=== PATIENT | female | born 1985 ===

== ENCOUNTER 2016-10-13 09:08 | Emergency (ER) | payer OTHER ==
[2016-10-13 09:25] VITALS: TEMP 98.2; BMI 24.9
--- NOTE | 2016-10-13 09:36 | ED PDOC ---
Arrival/HPI - General Historian: Patient - History of Present Illness Time/Duration: Prior to Arrival Symptom Onset: Sudden Symptom Course: Unchanged - General Time Seen by Provider: 10/13/16 09:14 - History of Present Illness Narrative History of Present Illness (Text): 31 F with pmh of asthma and migraine presents to the emergency department with palpitations, lightheadedness, sob, and chest tightness. Pt states that her symptoms first started 1 month ago when her mother in law . She states that her symptoms have a sudden onset and last for a few min and are gone. She does admit to being more stressed lately. She denies any anxiety or depression. Denies any psychiatry hx. Denies any lawson, dizziness, f/c, cp, abd pain, n/c/d, urinary or bm changes. PMD: Dr Wilkins ([facility]) Past Medical History - Provider Review Nursing Documentation Reviewed: Yes - Infectious Disease Hx of Infectious Diseases: None - Tetanus Immunization Tetanus Immunization: Unknown - Cardiac Hx Cardiac Disorders: No - Pulmonary Hx Respiratory Disorders: Yes Hx Asthma: Yes - Neurological Hx Neurological Disorder: Yes Hx Migraine: Yes - HEENT Hx HEENT Disorder: No - Renal Hx Renal Disorder: No - Endocrine/Metabolic Hx Endocrine Disorders: No - Hematological/Oncological Hx Blood Disorders: No - Integumentary Hx Dermatological Disorder: No - Musculoskeletal/Rheumatological Hx Musculoskeletal Disorders: No - Gastrointestinal Hx Gastrointestinal Disorders: No - Genitourinary/Gynecological Hx Genitourinary Disorders: No - Psychiatric Hx Psychophysiologic Disorder: No Hx Substance Use: No - Past Surgical History Past Surgical History: No Previous - Anesthesia Hx Anesthesia: No - Suicidal Assessment Feels Threatened In Home Enviroment: No Family/Social History Family/Social History: No Known Family HX Smoking Status: Never Smoked Hx Alcohol Use: Yes Frequency of alcohol use: Socially Hx Substance Use: No Hx Substance Use Treatment: No Allergies/Home Meds Allergies/Adverse Reactions: Allergies No Known Allergies Allergy (Verified 10/13/16 09:25) Home Medications: Home Meds Medication Instructions Recorded Confirmed Albuterol HFA [Ventolin HFA 90 2 puff INH PRN PRN 05/16/16 10/13/16 mcg/actuation (8 g)] Review of Systems - Physician Review All systems were reviewed & negative as marked: Yes - Review of Systems Respiratory: SOB. absent: Wheezing Cardiovascular: Palpitations. absent: Chest Pain Neurological: Other (light headness ). absent: Headache, Dizziness Psychiatric: absent: Anxiety, Depression Physical Exam Temperature: Afebrile Blood Pressure: Normal Pulse: Regular Respiratory Rate: Normal Appearance: Positive for: Well-Appearing, Non-Toxic, Comfortable Pain Distress: None Mental Status: Positive for: Alert and Oriented X 3 - Systems Exam Head: Present: Atraumatic, Normocephalic Pupils: Present: PERRL Extroacular Muscles: Present: EOMI Conjunctiva: Present: Normal Mouth: Present: Moist Mucous Membranes Neck: Present: Normal Range of Motion Respiratory/Chest: Present: Clear to Auscultation, Good Air Exchange. No: Respiratory Distress, Accessory Muscle Use, Wheezes, Rales, Rhonchi Cardiovascular: Present: Regular Rate and Rhythm, Normal S1, S2. No: Murmurs, Tachycardic Abdomen: Present: Normal Bowel Sounds. No: Tenderness, Distention, Peritoneal Signs Upper Extremity: Present: Normal Inspection. No: Cyanosis, Edema Lower Extremity: Present: Normal Inspection. No: Edema Neurological: Present: GCS=15, CN II-XII Intact, Speech Normal Skin: Present: Warm, Dry, Normal Color. No: Rashes Psychiatric: Present: Alert, Oriented x 3, Normal Insight, Normal Concentration , Normal Mood. No: Anxious, Agitated, Depressed Mood Vital Signs Temp Pulse Resp BP Pulse Ox 10/13/16 09:24 98.2 F 81 19 113/71 98 Medical Decision Making ED Course and Treatment: Patient seen and examined with resident. Came up with treatment and disposition plan with resident. (Justino Mcgregor) Impression: 31 F with pmh of asthma and migraine presents to the emergency department with palpitations, lightheadedness, sob, and chest tightness. Differential Diagnosis included but are not limited to: anxiety vs panic symptoms vs unlikely cardiac related Plan: - CBC, CMP, - EKG stat - Reassess and disposition Progress Notes: Pt resting in bed comfortably. No complaints. EKG: Ordered, reviewed, and independently interpreted the EKG. Rate : 74 BPM Rhythm : NSR Interpretation : No ST-segment elevations or depressions, no T-wave inversions, normal intervals. Comparison : 05/19/16 10/13/16 11:12 PERC score of 0. Low likely of PE. 10/13/16 11:28 Pt c/o throat pain going on for 2 days. On exam no pharyngeal or tonsil erythema , edema, or exudates On reevaluation the patient feels better and is in no acute distress. I have discussed the results and plan with the patient, who expresses understanding. Patient given the opportunity to ask question, all questions were answered and there is agreement with the plan to discharge the patient home. Patient is stable for discharge. Patient was instructed to follow up with physician/clinic in 1-2 days or return if symptoms persist/worsen or new concerning symptoms arise. 10/13/16 12:32 TSH and Trops are wnl 10/13/16 12:35 (Raminfar,Quintin) - Lab Interpretations Lab Results: 10/13/16 09:50 10/13/16 09:50 Lab Results 10/13/16 11:30: TSH 3rd Generation 0.63 10/13/16 10:15: Troponin I < 0.01 10/13/16 09:50: WBC 5.1, RBC 3.91, Hgb 11.7 L, Hct 34.8 L, MCV 89.0, MCH 29.9, MCHC 33.6, RDW 12.8, Plt Count 321, MPV 8.8, Gran % 59.6, Lymph % (Auto) 28.3, [place] % (Auto) 8.1 H, Eos % (Auto) 3.6, Baso % (Auto) 0.4, Gran # 3.02, Lymph # 1.4, [place] # 0.4, Eos # 0.2, Baso # 0.02 10/13/16 09:50: Sodium 138, Potassium 4.0, Chloride 100, Carbon Dioxide 29, Anion Gap 13, BUN 13, Creatinine 0.6, Est GFR ( Amer) > 60, Est GFR (Non- Af Amer) > 60, Random Glucose 90, Calcium 9.1, Total Bilirubin 0.6, AST 26, ALT 26, Alkaline Phosphatase 38, Total Protein 7.1, Albumin 4.0, Globulin 3.1, Albumin/Globulin Ratio 1.3 Disposition/Present on Arrival - Present on Arrival Any Indicators Present on Arrival: No History of DVT/PE: No History of Uncontrolled Diabetes: No Urinary Catheter: No History of Decub. Ulcer: No History Surgical Site Infection Following: None - Disposition Have Diagnosis and Disposition been Completed?: Yes Disposition Time: 12:30 Patient Plan: Discharge - Disposition Diagnosis: Palpitations Disposition: HOME/ ROUTINE Patient Problems: Current Active Problems Problem Status Onset Palpitations Acute Condition: IMPROVED Additional Instructions: Jack Flores, thank you for letting us take care of you today. Your provider was Dr Mcgregor. You were treated for [Diagnosis Here]. The emergency medical care you received today was directed at your acute symptoms. If you were prescribed any medication, please fill it and take as directed. It may take several days for your symptoms to resolve. Return to the Emergency Department if your symptoms worsen, do not improve, or if you have any other problems. Please contact your doctor or call one of the physicians/clinics you have been referred to that are listed on the Patient Visit Information form that is included in your discharge packet. Bring any paperwork you were given at discharge with you along with any medications you are taking to your follow up visit. Our treatment cannot replace ongoing medical care by a primary care provider (PCP) outside of the emergency department. Thank you for allowing the [facility] team to be part of your care today. Follow up with your PMD with in next 1-2 days. Consider following up with cardiology and psychiatry for any panic or anxiety related symptoms. If your symptoms recur come back to the closest ED. Referrals: Jama Wilkins, [Primary Care Provider] - Follow up with primary
[2016-10-13 09:56] LABS: ADD MANUAL DIFF? NO
[2016-10-13 09:58] LABS: BASO # 0.02 K/mm3 (0.0-2.0); BASO % 0.4 % (0.0-3.0); EOS # 0.2 (0.0-0.7); EOS % 3.6 % (1.5-5.0); GRAN # 3.02 (1.4-6.5); GRAN % 59.6 % (50.0-68.0); HEMATOCRIT 34.8 % (36.0-48.0); LYMPH # 1.4 (1.2-3.4); LYMPH % 28.3 % (22.0-35.0); MEAN CORPUSCULAR HEMOGLOBIN 29.9 pg (25.0-35.0); MEAN CORPUSCULAR HGB CONC 33.6 g/dl (31.0-37.0); MEAN PLATELET VOLUME 8.8 fl (7.0-11.0); MONO # 0.4 (0.1-0.6); MONO % 8.1 % (1.0-6.0); PLATELET COUNT 321 10^3/uL (120.0-450.0); RED CELL DISTRIBUTION WIDTH 12.8 % (11.5-14.5); WHITE BLOOD COUNT 5.1 10^3/ul (4.5-11.0)
[2016-10-13 10:15] LABS: ALB/GLOB RATIO 1.3 (1.1-1.8); ALKALINE PHOSPHATASE 38 U/L (38-133); ALT/SGPT 26 U/L (7-56); AST/SGOT 26 U/L (15-39); BILIRUBIN,TOTAL 0.6 mg/dL (0.2-1.3); BLOOD UREA NITROGEN 13 mg/dL (7-21); CALCIUM 9.1 mg/dL (8.4-10.5); CARBON DIOXIDE 29 mmol/L (21-33); CHLORIDE 100 mmol/L (98-107); GFR AFRICAN-AMERICAN > 60; GLUCOSE,RANDOM 90 mg/dL (70-110); SODIUM 138 mmol/L (132-148); TOTAL PROTEIN 7.1 g/dL (5.8-8.3)
[2016-10-13 17:55] VITALS: BP 115/72; PULSE 77; RESP 16; O2SAT 100
--- NOTE | 2016-10-14 02:21 | CARD ---
APPROVED REPORT EKG Measurement Heart [id number] <Conclusion> Normal sinus rhythm Normal ECG
== END 2016-10-13 12:50 | disposition home or self-care (01) ==
LOC: ED 09:08
DX: R00.2 Palpitations (principal)

== ENCOUNTER 2017-03-03 05:03 | Emergency (ER) | payer OTHER ==
[2017-03-03 05:04] VITALS: BMI 24.9
[2017-03-03 05:11] VITALS: TEMP 98.2
--- NOTE | 2017-03-03 05:27 | ED PDOC ---
Arrival/HPI - General Chief Complaint: Abdominal Pain Time Seen by Provider: 03/03/17 05:06 Historian: Patient - History of Present Illness Narrative History of Present Illness (Text): 03/03/17 05:24 A 31 year old female, whose past medical history includes asthma and migraine, presents to the emergency department complaining of lower abdominal pain for 3 days. Patient reports also experiencing dizziness and vaginal bleeding. Patient denies of any nausea, vomiting, diarrhea, dysuria, or any other complaints. PMD: Dr. Wilkins Time/Duration: > week (3 days) Symptom Onset: Gradual Symptom Course: Unchanged Past Medical History - Provider Review Nursing Documentation Reviewed: Yes - Infectious Disease Hx of Infectious Diseases: None - Tetanus Immunization Tetanus Immunization: Unknown - Cardiac Hx Cardiac Disorders: No - Pulmonary Hx Respiratory Disorders: Yes Hx Asthma: Yes - Neurological Hx Neurological Disorder: Yes Hx Migraine: Yes - HEENT Hx HEENT Disorder: No - Renal Hx Renal Disorder: No - Endocrine/Metabolic Hx Endocrine Disorders: No - Hematological/Oncological Hx Blood Disorders: No - Integumentary Hx Dermatological Disorder: No - Musculoskeletal/Rheumatological Hx Musculoskeletal Disorders: No - Gastrointestinal Hx Gastrointestinal Disorders: No - Genitourinary/Gynecological Hx Genitourinary Disorders: No - Psychiatric Hx Psychophysiologic Disorder: No Hx Substance Use: No - Past Surgical History Past Surgical History: No Previous - Anesthesia Hx Anesthesia: No - Suicidal Assessment Feels Threatened In Home Enviroment: No Family/Social History - Physician Review Nursing Documentation Reviewed: Yes Family/Social History: No Known Family HX Smoking Status: Never Smoked Hx Alcohol Use: Yes Hx Substance Use: No Hx Substance Use Treatment: No Allergies/Home Meds Allergies/Adverse Reactions: Allergies No Known Allergies Allergy (Verified 03/03/17 05:13) Home Medications: Home Meds Medication Instructions Recorded Confirmed Albuterol HFA [Ventolin HFA 90 2 puff INH PRN PRN 05/16/16 03/03/17 mcg/actuation (8 g)] Review of Systems - Physician Review All systems were reviewed & negative as marked: Yes - Review of Systems Gastrointestinal: Abdominal Pain (lower abdominal pain). absent: Diarrhea, Nausea, Vomiting Genitourinary Female: Vaginal Bleeding. absent: Dysuria Neurological: Dizziness Physical Exam Vital Signs Reviewed: Yes Vital Signs Temp Pulse Resp BP Pulse Ox 03/03/17 07:04 65 16 119/75 100 03/03/17 05:11 98.2 F 85 18 112/48 L 98 Temperature: Afebrile Blood Pressure: Normal Pulse: Regular Respiratory Rate: Normal Appearance: Positive for: Well-Appearing Pain Distress: None Mental Status: Positive for: Alert and Oriented X 3 - Systems Exam Head: Present: Atraumatic, Normocephalic Pupils: Present: PERRL Extroacular Muscles: Present: EOMI Conjunctiva: Present: Normal Mouth: Present: Moist Mucous Membranes Neck: Present: Normal Range of Motion Respiratory/Chest: Present: Clear to Auscultation, Good Air Exchange. No: Respiratory Distress, Accessory Muscle Use Cardiovascular: Present: Regular Rate and Rhythm, Normal S1, S2. No: Murmurs Abdomen: Present: Tenderness (LLQ tenderness) Back: Present: Normal Inspection Upper Extremity: Present: Normal Inspection. No: Cyanosis, Edema Lower Extremity: Present: Normal Inspection. No: Edema Neurological: Present: GCS=15, CN II-XII Intact, Speech Normal Skin: Present: Warm, Dry, Normal Color. No: Rashes Psychiatric: Present: Alert, Oriented x 3, Normal Insight, Normal Concentration Medical Decision Making ED Course and Treatment: 03/03/17 05:26 Impression: 31 year old female with lower abdominal pain and vaginal bleeding. Physical exam shows LLQ abdominal tenderness. Plan: -- Labs -- Urinalysis -- Urine Test -- Reassess and disposition Prior Visits: Notes and results from previous visits were reviewed. Patient was last seen in the emergency department on 10/13/2016 for palpitations, lightheadedness, shortness of breath, and chest tightness. Patient was discharged home. Progress Notes: - Lab Interpretations Lab Results: 03/03/17 06:01 03/03/17 06:01 Lab Results 03/03/17 07:38: Urine HCG, Qual Negative 03/03/17 06:01: Urine Color Yellow, Urine Appearance Cloudy, Urine pH 6.0, Ur Specific [place] >= 1.030, Urine Protein 30 H, Urine Glucose (UA) Negative, Urine Ketones Negative, Urine Blood Large H, Urine Nitrate Negative, Urine Bilirubin Negative, Urine Urobilinogen 0.2, Ur Leukocyte Esterase Negative, Urine RBC 25 - 30, Urine WBC 0 - 2, Ur Epithelial Cells 1 - 3, Urine Bacteria Small 03/03/17 06:01: Sodium 141, Potassium 4.5, Chloride 104, Carbon Dioxide 28, Anion Gap 14, BUN 16, Creatinine 0.7, Est GFR ( Amer) > 60, Est GFR (Non- Af Amer) > 60, Random Glucose 91, Calcium 8.8, Total Bilirubin 0.3, AST 27, ALT 26, Alkaline Phosphatase 38, Total Protein 6.8, Albumin 4.0, Globulin 2.7, Albumin/Globulin Ratio 1.5 03/03/17 06:01: WBC 5.1, RBC 3.85, Hgb 11.2 L, Hct 34.6 L, MCV 89.9, MCH 29.1, MCHC 32.4, RDW 13.0, Plt Count 307, MPV 9.0, Gran % 38.9 L, Lymph % (Auto) 46.5 H, [place] % (Auto) 8.5 H, Eos % (Auto) 5.9 H, Baso % (Auto) 0.2, Gran # 1.96, Lymph # 2.4, [place] # 0.4, Eos # 0.3, Baso # 0.01 I have reviewed the lab results: Yes - RAD Interpretation Radiology Orders: 03/03/17 06:11 TRANSVAGINAL [US] Stat - Medication Orders Current Medication Orders: Discontinued Medications Ketorolac Tromethamine (Toradol) 30 mg IVP ONCE ONE Stop: 03/03/17 05:32 Last Admin: 03/03/17 05:41 Dose: 30 mg MAR Pain Assessment Document 03/03/17 05:41 DEZ (Rec: 03/03/17 05:42 DEZ [id number]) Pain Reassessment Is this a pain reassessment? No IVP Administration Document 03/03/17 05:41 DEZ (Rec: 03/03/17 05:42 DEZ [id number]) Charges for Administration # of IVP Administrations 1 - Transfer of Care Patient signed out to Dr:: jl wu and dispo - Scribe Statement The provider has reviewed the documentation as recorded by the Scribe Lor Felder Provider Scribe Attestation: All medical record entries made by the Scribe were at my direction and personally dictated by me. I have reviewed the chart and agree that the record accurately reflects my personal performance of the history, physical exam, medical decision making, and the department course for this patient. I have also personally directed, reviewed, and agree with the discharge instructions and disposition. Disposition/Present on Arrival - Present on Arrival Any Indicators Present on Arrival: No History of DVT/PE: No History of Uncontrolled Diabetes: No Urinary Catheter: No History of Decub. Ulcer: No History Surgical Site Infection Following: None - Disposition Have Diagnosis and Disposition been Completed?: Yes Diagnosis: Abdominal pain, Dizziness Disposition: HOME/ ROUTINE Disposition Time: 07:00 Condition: GOOD Discharge Instructions (ExitCare): Acute Abdominal Pain (ED), Dizziness (ED) Additional Instructions: For any fever, change in location or character of pain, diarrhea, headaches, shortness of breath, urinary symptoms, unsteadiness, lightheadedness, palpitations, get rechecked. Take Naproxen as directed for pain. Follow-up with your stone rubber to have IUD re-evaluated. For any worsening or change in symptoms return to ER immediately. Prescriptions: Naproxen 250 mg PO BID PRN #12 tablet PRN Reason: Pain, Moderate (4-7) Referrals: Jama Wilkins DO [Primary Care Provider] - Follow up with primary Forms: [employer] (Togolese)
[2017-03-03 06:06] LABS: BASO # 0.01 K/mm3 (0.0-2.0); BASO % 0.2 % (0.0-3.0); EOS # 0.3 (0.0-0.7); EOS % 5.9 % (1.5-5.0); GRAN # 1.96 (1.4-6.5); GRAN % 38.9 % (50.0-68.0); HEMATOCRIT 34.6 % (36.0-48.0); LYMPH # 2.4 (1.2-3.4); LYMPH % 46.5 % (22.0-35.0); MEAN CELL VOLUME 89.9 fl (80.0-105.0); MEAN CORPUSCULAR HEMOGLOBIN 29.1 pg (25.0-35.0); MEAN CORPUSCULAR HGB CONC 32.4 g/dl (31.0-37.0); MONO # 0.4 (0.1-0.6); MONO % 8.5 % (1.0-6.0); WHITE BLOOD COUNT 5.1 10^3/ul (4.5-11.0)
[2017-03-03 06:08] LABS: URINE BILIRUBIN NEGATIVE (NEGATIVE); URINE BLOOD LARGE (NEGATIVE); URINE GLUCOSE (UA) NEGATIVE (NEGATIVE); URINE KETONE NEGATIVE (NEGATIVE); URINE LEUKOCYTE ESTERASE NEGATIVE Leu/uL (NEGATIVE); URINE PROTEIN 30 mg/dL (<30 mg/dL); URINE UROBILINOGEN 0.2 E.U./dL (<1 E.U./dL)
[2017-03-03 06:12] LABS: URINE APPEARANCE CLOUDY (CLEAR); URINE COLOR YELLOW (YELLOW)
[2017-03-03 06:21] LABS: URINE RBC 25 - 30 /hpf (0-2); URINE WBC 0 - 2 /hpf (0-6)
[2017-03-03 06:22] LABS: URINE BACTERIA SMALL (NEG)
[2017-03-03 07:07] LABS: ALB/GLOB RATIO 1.5 (1.1-1.8); ALKALINE PHOSPHATASE 38 U/L (38-126); ALT/SGPT 26 U/L (7-56); AST/SGOT 27 U/L (14-36); BILIRUBIN,TOTAL 0.3 mg/dL (0.2-1.3); BLOOD UREA NITROGEN 16 mg/dL (7-21); CALCIUM 8.8 mg/dL (8.4-10.5); CARBON DIOXIDE 28 mmol/L (21-33); CHLORIDE 104 mmol/L (98-107); GFR AFRICAN-AMERICAN > 60; GLUCOSE,RANDOM 91 mg/dL (70-110); POTASSIUM 4.5 mmol/L (3.6-5.0); SODIUM 141 mmol/L (132-148); TOTAL PROTEIN 6.8 g/dL (5.8-8.3)
--- NOTE | 2017-03-03 07:33 | US ---
EXAM: US Pelvis, Transvaginal EXAM DATE/TIME: 03/03/2017 6:11 AM CLINICAL HISTORY: 31 years old, female; Pain; Pelvic pain; Patient HX: Heavy period; Additional info: Llq pain TECHNIQUE: Real-time transvaginal pelvic ultrasound (complete) with image documentation. Transvaginal imaging was used for better evaluation of the endometrium and adnexa. COMPARISON: US - ABDOMEN COMPLETE 04/13/2015 9:54:36 AM FINDINGS: Uterus/cervix: Uterus measures 10.2 x 4.8 x 7.2 cm. Endometrium measures 5.8 mm. IUD centrally position. No myometrial mass. Right ovary: Right ovary measures 2.5 x 2.2 x 3.4 cm with small subcentimeter follicles. Normal blood flow. Left ovary: Left ovary measures 2.8 x 1.8 x 2.7 cm. Also subcentimeter follicles. Normal blood flow. Free fluid: No free fluid. Bladder: Empty bladder which cannot be evaluated with this probe. IMPRESSION: IUD centrally position in endometrial canal. No acute abnormality.
--- NOTE | 2017-03-03 08:08 | ED PDOC ---
Physical Exam Vital Signs Reviewed: Yes Vital Signs Temp Pulse Resp BP Pulse Ox 03/03/17 07:04 65 16 119/75 100 03/03/17 05:11 98.2 F 85 18 112/48 L 98 Temperature: Afebrile Blood Pressure: Hypertensive Pulse: Regular Respiratory Rate: Normal Appearance: Positive for: Well-Appearing, Non-Toxic, Comfortable Pain Distress: Mild Mental Status: Positive for: Alert and Oriented X 3 Medical Decision Making ED Course and Treatment: 03/03/17 07:00 Impression: Patient is a 31 yo female who presents to ED complaining of dizziness at 4 am upon awakening. Also has lower abdominal pain, mostly left sided intermittently for past several days but worse this AM. Progress Notes: 03/03/17 07:00 Patient is signed over to me by Dr. Anguiano. Patient is still pending workup. I evaluated the patient with present who assists with translation. I reviewed previously ordered labs and ultrasound report. Labs and ultrasound report reviewed with patient. On my exam, she is not orthostatic, not tachycardic, denies pleuritic chest pain or dyspnea. She has no focal neuro deficits. Dizziness very mild and only when standing. Not worse with head turning. Oropharynx exam unremarkable. Very MILD suprapubic pain on my exam. No lateral pain. No rlq pain. No ruq pain. IUD noted on ultrasound. Otherwise unremarkable ultrasound, although limitations of this reviewed with patient and . Pain reportedly significantly improved after iv toradol given. 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 Symptoms and ER visit reviewed with her PMD Dr. Doron Wilkins for followup. Urine culture sent. She denies dysuria or frequency. I reviewed prior admission last year where she had unremarkable MRI and MRA. 03/03/17 08:53 Transvaginal Ultrasound Rn House Supervisor : ELIANA PINO Report Date : 03/03/2017 07:33:00 EXAM:US Pelvis, Transvaginal EXAM DATE/TIME: 03/03/2017 6:11 AM COMPARISON: US - ABDOMEN COMPLETE 04/13/2015 9:54:36 AM FINDINGS: Uterus/cervix: Uterus measures 10.2 x 4.8 x 7.2 cm. Endometrium measures 5.8 mm. IUD centrally position. No myometrial mass. Right ovary: Right ovary measures 2.5 x 2.2 x 3.4 cm with small subcentimeter follicles. Normal blood flow. Left ovary: Left ovary measures 2.8 x 1.8 x 2.7 cm. Also subcentimeter follicles. Normal blood flow. Free fluid: No free fluid. Bladder: Empty bladder which cannot be evaluated with this probe. IMPRESSION: IUD centrally position in endometrial canal. No acute abnormality. - Lab Interpretations Lab Results: 03/03/17 06:01 03/03/17 06:01 Lab Results 03/03/17 07:38: Urine HCG, Qual Negative 03/03/17 06:01: Urine Color Yellow, Urine Appearance Cloudy, Urine pH 6.0, Ur Specific [place] >= 1.030, Urine Protein 30 H, Urine Glucose (UA) Negative, Urine Ketones Negative, Urine Blood Large H, Urine Nitrate Negative, Urine Bilirubin Negative, Urine Urobilinogen 0.2, Ur Leukocyte Esterase Negative, Urine RBC 25 - 30, Urine WBC 0 - 2, Ur Epithelial Cells 1 - 3, Urine Bacteria Small 03/03/17 06:01: Sodium 141, Potassium 4.5, Chloride 104, Carbon Dioxide 28, Anion Gap 14, BUN 16, Creatinine 0.7, Est GFR ( Amer) > 60, Est GFR (Non- Af Amer) > 60, Random Glucose 91, Calcium 8.8, Total Bilirubin 0.3, AST 27, ALT 26, Alkaline Phosphatase 38, Total Protein 6.8, Albumin 4.0, Globulin 2.7, Albumin/Globulin Ratio 1.5 03/03/17 06:01: WBC 5.1, RBC 3.85, Hgb 11.2 L, Hct 34.6 L, MCV 89.9, MCH 29.1, MCHC 32.4, RDW 13.0, Plt Count 307, MPV 9.0, Gran % 38.9 L, Lymph % (Auto) 46.5 H, [place] % (Auto) 8.5 H, Eos % (Auto) 5.9 H, Baso % (Auto) 0.2, Gran # 1.96, Lymph # 2.4, [place] # 0.4, Eos # 0.3, Baso # 0.01 - RAD Interpretation Radiology Orders: 03/03/17 06:11 TRANSVAGINAL [US] Stat - Medication Orders Current Medication Orders: Discontinued Medications Ketorolac Tromethamine (Toradol) 30 mg IVP ONCE ONE Stop: 03/03/17 05:32 Last Admin: 03/03/17 05:41 Dose: 30 mg MAR Pain Assessment Document 03/03/17 05:41 DEZ (Rec: 03/03/17 05:42 DEZ [id number] Pain Reassessment Is this a pain reassessment? No IVP Administration Document 03/03/17 05:41 DEZ (Rec: 03/03/17 05:42 DEZ [id number]) Charges for Administration # of IVP Administrations 1 - Scribe Statement The provider has reviewed the documentation as recorded by the Mikeibchance Bruno Provider Scribe Attestation: All medical record entries made by the Scribe were at my direction and personally dictated by me. I have reviewed the chart and agree that the record accurately reflects my personal performance of the history, physical exam, medical decision making, and the department course for this patient. I have also personally directed, reviewed, and agree with the discharge instructions and disposition. Disposition/Present on Arrival - Present on Arrival Any Indicators Present on Arrival: No History of DVT/PE: No History of Uncontrolled Diabetes: No Urinary Catheter: No History of Decub. Ulcer: No History Surgical Site Infection Following: None - Disposition Have Diagnosis and Disposition been Completed?: Yes Diagnosis: Abdominal pain, Dizziness Disposition: HOME/ ROUTINE Disposition Time: 07:45 Patient Plan: Discharge Condition: GOOD Discharge Instructions (ExitCare): Acute Abdominal Pain (ED), Dizziness (ED) Additional Instructions: For any fever, change in location or character of pain, diarrhea, headaches, shortness of breath, urinary symptoms, unsteadiness, lightheadedness, palpitations, get rechecked. Take Naproxen as directed for pain. 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 For any worsening or change in symptoms return to ER immediately. Prescriptions: Naproxen 250 mg PO BID PRN #12 tablet PRN Reason: Pain, Moderate (4-7) Referrals: Jama Wilkins, [Primary Care Provider] - Follow up with primary Forms: [employer] (Korean)
[2017-03-03 08:15] VITALS: BP 119/75; PULSE 65; RESP 16; O2SAT 100
== END 2017-03-03 08:35 | disposition home or self-care (01) ==
LOC: ED 05:03
DX: R10.30 Lower abdominal pain, unspecified (principal); R42 Dizziness and giddiness
CPT/HCPCS: 76830; 80053; 81001; 84703; 85025; 96374; 99284; J1885

== ENCOUNTER 2017-08-04 15:53 | Emergency (ER) | payer OTHER ==
[2017-08-04 15:53] VITALS: BMI 24.9
[2017-08-04 16:17] VITALS: TEMP 98.9
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
[2017-08-04 18:21] LABS: URINE BILIRUBIN NEGATIVE (NEGATIVE); URINE BLOOD NEGATIVE (NEGATIVE); URINE GLUCOSE (UA) NEGATIVE (NEGATIVE); URINE LEUKOCYTE ESTERASE NEGATIVE Leu/uL (NEGATIVE); URINE PROTEIN NEGATIVE mg/dL (<30 mg/dL); URINE UROBILINOGEN 0.2 E.U./dL (<1 E.U./dL)
[2017-08-04 18:22] LABS: BASO # 0.04 K/mm3 (0.0-2.0); EOS # 0.4 (0.0-0.7); EOS % 8.8 % (1.5-5.0); GRAN % 47.4 % (50.0-68.0); HEMOGLOBIN 12.8 g/dL (12.0-16.0); LYMPH # 1.5 (1.2-3.4); LYMPH % 35.2 % (22.0-35.0); MEAN CELL VOLUME 92.3 fl (80.0-105.0); MEAN CORPUSCULAR HEMOGLOBIN 29.9 pg (25.0-35.0); MEAN CORPUSCULAR HGB CONC 32.4 g/dl (31.0-37.0); MEAN PLATELET VOLUME 9.4 fl (7.0-11.0); MONO # 0.3 (0.1-0.6); MONO % 7.6 % (1.0-6.0); RBC 4.28 10^6/uL (3.5-6.1); RED CELL DISTRIBUTION WIDTH 12.9 % (11.5-14.5); URINE APPEARANCE CLEAR (CLEAR); URINE COLOR YELLOW (YELLOW); WHITE BLOOD COUNT 4.2 10^3/ul (4.5-11.0)
[2017-08-04 18:39] LABS: ACETAMINOPHEN < 10.0 ug/ml (10.0-20.0); SALICYLATE < 1 mg/dL (2.0-20.0)
[2017-08-04 18:40] LABS: ALB/GLOB RATIO 1.3 (1.1-1.8); ALBUMIN 4.2 g/dL (3.0-4.8); ALT/SGPT 21 U/L (7-56); AST/SGOT 23 U/L (14-36); BLOOD UREA NITROGEN 12 mg/dL (7-21); CALCIUM 9.8 mg/dL (8.4-10.5); GFR AFRICAN-AMERICAN > 60; GFR NON-AFRICAN AMERICAN > 60; LIPASE 247 U/L (23-300)
[2017-08-04 19:10] LABS: BARBITURATES, UR NEGATIVE (NEGATIVE); BENZODIAZEPINES, UR NEGATIVE (NEGATIVE); OPIATES, UR NEGATIVE (NEGATIVE); PHENCYCLIDINE, UR NEGATIVE (NEGATIVE)
--- NOTE | 2017-08-04 19:29 | CARD ---
APPROVED REPORT EKG Measurement Heart [id number] <Conclusion> Normal sinus rhythm Normal ECG
[2017-08-04 19:52] VITALS: BP 120/78; PULSE 80; RESP 16; O2SAT 100
--- NOTE | 2017-08-05 08:40 | RAD ---
HISTORY: chest pain/palpitations COMPARISON: 06/26/2016 FINDINGS: LUNGS: No active pulmonary disease. PLEURA: No significant pleural effusion identified, no pneumothorax apparent. CARDIOVASCULAR: Normal. OSSEOUS STRUCTURES: No significant abnormalities. VISUALIZED UPPER ABDOMEN: Normal. OTHER FINDINGS: None. IMPRESSION: No active disease. No significant interval change compared to the prior examination(s). Concordant results with the preliminary interpretation rendered by the emergency department physician procedure.
== END 2017-08-04 19:43 | disposition home or self-care (01) ==
LOC: ED 15:53
DX: R00.2 Palpitations (principal)